=== PATIENT | female | born 1945 | race Caucasian/White ===

== ENCOUNTER → 2021-02-27 15:25 | Outpatient (CLI) | payer MEDICARE, OTHER, SELFPAY | PROVIDERS: Referring Provider Physician Assistant; Visit Provider Physician Assistant | DX: N34.3 Urethral syndrome, unspecified (principal) | CPT/HCPCS: 87077; 87086; 87186 ==

== ENCOUNTER 2021-03-06 10:21 | Emergency (ER) | payer MEDICARE, BC, SELFPAY ==
[2021-03-06] VITALS (8 sets, daily range): BP systolic 115–137; BP diastolic 56–87; PULSE 96–116; RESP 16–24; TEMP 36.2–37.2; O2SAT 95–99; BMI 22.6
--- NOTE | 2021-03-06 10:47 | DI.RAD.S_ITS ---
PROCEDURE: XR CHEST 1V INDICATIONS: suspected sepsis TECHNIQUE: One view of the chest was acquired. COMPARISON: None. FINDINGS: Surgical changes and devices: None. Lungs and pleura: Lungs are clear. No pleural effusions or pneumothorax. Calcified granuloma, left lung. Mediastinum: Mediastinal contours appear normal. Heart size is normal. Bones and chest wall: No suspicious bony lesions. Overlying soft tissues appear unremarkable. IMPRESSION: No evidence acute pulmonary process. Dictated by: Kyaw Grey M.D. on 03/06/2021 at 11:35 Approved by: Kyaw Grey M.D. on 03/06/2021 at 11:36
[2021-03-06] MEDS: SODIUM CHLORIDE 0.9% 1,000 ML 1000 ML IV (11:22)
[2021-03-06] MEDS: ONDANSETRON 4 MG/2 ML INJ IV (11:22)
[2021-03-06 11:25] LABS: Add Manual Diff / Slide Review NO; Basophils Absolute Auto 0 /uL (0-100); Basophils Percent Auto 0.4 % (0-2); Eosinophils Absolute Auto 0 /uL (0-450); Eosinophils Percent Auto 0.1 % (2-4); Hematocrit 42.1 % (36-46); Hemoglobin 14.2 g/dL (12.0-16.0); Lymphocytes Absolute Auto 400 /uL (1100-4500); Lymphocytes Percent Auto 4.2 % (25-40); Mean Corpuscular HGB Conc 33.7 % (30-36); Mean Corpuscular Hemoglobin 32.1 PG (26-34); Mean Corpuscular Volume 95.1 fL (80-100); Monocytes Absolute Auto 300 /uL (0-900); Monocytes Percent Auto 3.5 % (3-14); Neutrophils Absolute Auto 8800 /uL (1500-7000); Neutrophils Percent Auto 91.8 % (50-75); Platelet Count 193 X10^3/uL (150-400); Red Blood Cell Count 4.42 X10^6/uL (4.0-5.2); Red Cell Distribution Width 12.4 % (11.6-14.8); White Blood Cell Count 9.6 X10^3/uL (4.5-11.0)
[2021-03-06 11:34] LABS: Lactate (Lactic Acid) 1.4 mmol/L (0.7-2.1)
[2021-03-06 11:36] LABS: Alanine Aminotransferase 55 IU/L (<35); Albumin 4.5 g/dL (3.5-5.0); Albumin Globulin Ratio 1.6 (1.0-2.8); Alkaline Phosphatase 77 U/L (38-126); Aspartate Aminotransferase 49 IU/L (14-36); BUN Creatinine Ratio 18.7 (6-22); Bilirubin Total 0.5 mg/dL (0.2-1.3); Blood Urea Nitrogen 14 mg/dL (7-17); Calcium 8.9 mg/dL (8.4-10.2); Carbon Dioxide 24 mmol/L (22-32); Chloride 105 mmol/L (98-107); Estimated Glomerular Filt Rate > 60.0 mL/min (>60); Globulin 2.9 g/dL (1.7-4.1); Glucose 136 mg/dL (80-110); HEMOLYSIS 21 (0-50); Lipase 141 U/L (23-300); Potassium 3.9 mmol/L (3.4-5.1); Sodium 137 mmol/L (137-145); Total Protein 7.4 g/dL (6.3-8.2)
[2021-03-06 11:52] LABS: Procalcitonin 0.11 ng/mL (<0.5)
--- NOTE | 2021-03-06 11:58 | ED.ABDPAIN ---
HPI - Abdominal Pain General Chief Complaint: Urogenital-Female Stated Complaint: Lower Abd Pain, Moving to Back, Nausea Time Seen by Provider: 03/06/21 11:56 Source: patient Mode of arrival: Ambulatory Limitations: no limitations History of Present Illness HPI narrative: This is a 75-year-old female who comes emergency department with complaint of generally unwell, lower abdominal pain with some radiation to bilateral back. Patient states she was recently on Augmentin for a UTI which she is still taking. She has 2 additional days of a 7 day course and urine culture was obtained and was positive for Klebsiella. Patient states she has 6 UTIs since July. She is following with urologist and has become self cathing for retained urine in between urinating herself. Patient's past medical history includes glaucoma, asthma, hypothyroidism. She has had a total hysterectomy and appendectomy. 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 because she held her urine for so many years she has not had her voiding cystogram or cystoscopy yet. Patient was on linezolid 1 time before orally at home. She has an allergy to Macrobid and sevoflurane. She lives in [place] and is currently visiting the area and staying [place] in [place] with her . Related Data Previous Rx's Medication Instructions Recorded amoxicillin 875 mg-potassium 1 tab PO BID 7 Days #14 tab 03/01/21 clavulanate 125 mg tablet (Augmentin) catheter 14 Fr-16 ([facility] #30 ea 03/01/21 Intermittent Catheter) Allergies Allergy/AdvReac Type Severity Reaction Status Date / Time nitrofurantoin Allergy Unknown Verified 03/06/21 10:41 [From Macrobid] sevoflurane Allergy Unknown Verified 03/06/21 10:41 Review of Systems Review of Systems ROS Unobtainable: All systems reviewed & are unremarkable except as noted in HPI and below Patient History Social History Smoking Status: Never smoker Smoking Status: Never smoker alcohol intake frequency: 0-2 drinks per day Substance Use Type: does not use Exam Narrative Exam Narrative: GENERAL: Alert and oriented x three, female in mild distress. HEENT: Head normocephalic, atraumatic, EOMI, pupils reactive, face symmetric, moist mucous membranes NECK: Supple, full range of motion CARDIOVASCULAR: Regular rate and rhythm without murmurs, rubs or gallops. RESPIRATORY: Breath sounds equal bilaterally, no wheezes rales or rhonchi. ABDOMEN: Soft, mild lower abdominal tenderness.. Normoactive bowel sounds all 4 quadrants. No guarding or rebound, rigidity, no mass, nondistended. : No CVA tenderness EXTREMITIES: Normal range of motion, no clubbing or edema. Neurovascularly intact NEUROLOGICAL: Cranial nerves II through XII grossly intact. Moving all extremities SKIN: Warm, dry, no petechiae, no rashes or lesions. Initial Vital Signs Initial Vital Signs: Vital Signs Temperature 97.1 F L 03/06/21 10:35 Pulse Rate 105 H 03/06/21 10:35 Respiratory Rate 20 03/06/21 10:35 Blood Pressure 137/69 03/06/21 10:35 Pulse Oximetry 99 03/06/21 10:35 Course Orders Ordered: ED Orders 03/06/21 11:07 Complete Blood Count AUTO DIFF Stat Comprehensive Metabolic Panel Stat Lactate (Lactic Acid) Stat Lipase Stat Procalcitonin Stat 03/06/21 11:39 Blood Culture Stat 03/06/21 11:45 COVID19 -Nasal swab/Pre-Proc Stat 03/06/21 11:56 UA Complete [Urinalysis and Microscopic] Stat 03/06/21 12:35 CT abdomen pelvis w con Stat 03/06/21 15:37 Clostridium Difficile Tox PCR Stat Discontinued Medications Sodium Chloride (Normal Saline 0.9%) 1,000 mls @ 1,000 mls/hr IV BOLUS ONE Stop: 03/06/21 11:45 Last Infusion: 03/06/21 14:31 Dose: 0 mls/hr Documented by: Admin: 03/06/21 11:22 Dose: 1,000 mls/hr Documented by: JAZZ Ondansetron HCl (Ondansetron 4 Mg/2 Ml Inj) 4 mg IV NOW ONE Stop: 03/06/21 10:47 Last Admin: 03/06/21 11:22 Dose: 4 mg Documented by: JAZZ Vital Signs Vital signs: Vital Signs - 8 hr 03/06/21 12:00 03/06/21 12:36 03/06/21 12:37 Temperature Pulse Rate 100 H 116 H 116 H Respiratory Rate 24 23 Blood Pressure 121/84 115/87 Pulse Oximetry 95 03/06/21 12:45 Temperature 98.9 F Pulse Rate Respiratory Rate Blood Pressure Pulse Oximetry MDM - Abdominal Pain Lab Data Result diagrams: 03/06/21 11:07 03/06/21 11:07 Labs: Lab Results 03/06/21 03/06/21 03/06/21 Range/Units 11:07 11:07 11:07 WBC 9.6 (4.5-11.0) X10^3/uL RBC 4.42 (4.0-5.2) X10^6/uL Hgb 14.2 (12.0-16.0) g/dL Hct 42.1 (36-46) % MCV 95.1 (80-100) fL MCH 32.1 (26-34) PG MCHC 33.7 (30-36) % RDW 12.4 (11.6-14.8) % Plt Count 193 (150-400) X10^3/uL Neut % (Auto) 91.8 H (50-75) % Lymph % (Auto) 4.2 L (25-40) % [place] % (Auto) 3.5 (3-14) % Eos % (Auto) 0.1 L (2-4) % Baso % (Auto) 0.4 (0-2) % Neut # (Auto) 8800 H (8432-3804) /uL Lymph # (Auto) 400 L (4837-8822) /uL [place] # (Auto) 300 (0-900) /uL Eos # (Auto) 0 (0-450) /uL Baso # (Auto) 0 (0-100) /uL Sodium 137 (137-145) mmol/L Potassium 3.9 (3.4-5.1) mmol/L Chloride 105 (98-107) mmol/L Carbon Dioxide 24 (22-32) mmol/L BUN 14 (7-17) mg/dL Creatinine 0.75 (0.52-1.04) mg/dL Estimated GFR > 60.0 (>60) mL/min BUN/Creatinine Ratio 18.7 (6-22) Glucose 136 H (80-110) mg/dL Lactate 1.4 (0.7-2.1) mmol/L Calcium 8.9 (8.4-10.2) mg/dL Total Bilirubin 0.5 (0.2-1.3) mg/dL AST 49 H (14-36) IU/L ALT 55 H (<35) IU/L Alkaline Phosphatase 77 (38-126) U/L Total Protein 7.4 (6.3-8.2) g/dL Albumin 4.5 (3.5-5.0) g/dL Globulin 2.9 (1.7-4.1) g/dL Albumin/Globulin Ratio 1.6 (1.0-2.8) Lipase 141 (23-300) U/L Procalcitonin 0.11 (<0.5) ng/mL Urine Color Urine Appearance Urine pH (4.5-8.0) Ur Specific [place] (1.000-1.035) Urine Protein (Negative) Urine Glucose (UA) (Negative) g/dL Urine Ketones (NEGATIVE) Urine Occult Blood (Negative) Urine Nitrate (Negative) Urine Bilirubin (NEGATIVE) Urine Urobilinogen (0.2) E.U./dL Ur Leukocyte Esterase (NEGATIVE) Urine RBC (0-5/HPF) Urine WBC (0-5/HPF) Urine Bacteria (None) Ur Culture Indicated? SARS-CoV-2 (PCR) (Negative) 03/06/21 03/06/21 Range/Units 11:45 11:56 WBC (4.5-11.0) X10^3/uL RBC (4.0-5.2) X10^6/uL Hgb (12.0-16.0) g/dL Hct (36-46) % MCV (80-100) fL MCH (26-34) PG MCHC (30-36) % RDW (11.6-14.8) % Plt Count (150-400) X10^3/uL Neut % (Auto) (50-75) % Lymph % (Auto) (25-40) % [place] % (Auto) (3-14) % Eos % (Auto) (2-4) % Baso % (Auto) (0-2) % Neut # (Auto) (0905-4675) /uL Lymph # (Auto) (5273-3809) /uL [place] # (Auto) (0-900) /uL Eos # (Auto) (0-450) /uL Baso # (Auto) (0-100) /uL Sodium (137-145) mmol/L Potassium (3.4-5.1) mmol/L Chloride (98-107) mmol/L Carbon Dioxide (22-32) mmol/L BUN (7-17) mg/dL Creatinine (0.52-1.04) mg/dL Estimated GFR (>60) mL/min BUN/Creatinine Ratio (6-22) Glucose (80-110) mg/dL Lactate (0.7-2.1) mmol/L Calcium (8.4-10.2) mg/dL Total Bilirubin (0.2-1.3) mg/dL AST (14-36) IU/L ALT (<35) IU/L Alkaline Phosphatase (38-126) U/L Total Protein (6.3-8.2) g/dL Albumin (3.5-5.0) g/dL Globulin (1.7-4.1) g/dL Albumin/Globulin Ratio (1.0-2.8) Lipase (23-300) U/L Procalcitonin (<0.5) ng/mL Urine Color Yellow Urine Appearance Clear Urine pH 5.0 (4.5-8.0) Ur Specific [place] 1.020 (1.000-1.035) Urine Protein Negative (Negative) Urine Glucose (UA) Negative (Negative) g/dL Urine Ketones Trace H (NEGATIVE) Urine Occult Blood 1+ H (Negative) Urine Nitrate Negative (Negative) Urine Bilirubin Negative (NEGATIVE) Urine Urobilinogen 0.2 (0.2) E.U./dL Ur Leukocyte Esterase Negative (NEGATIVE) Urine RBC 1-5/hpf (0-5/HPF) Urine WBC None seen (0-5/HPF) Urine Bacteria None seen (None) Ur Culture Indicated? Cult not indicated SARS-CoV-2 (PCR) Negative (Negative) Imaging Data CT scan - abdomen/pelvis: Radiologist's Impression: Launch?[address] [address] [address] Scan Report Signed Patient: Sondra Link MR#: [id number] : 1945 Acct:[id number] Age/Sex: 75 / F Date of Service: 03/06/21 Loc: ED Accession Number: [id number] ?? Procedure: CT abdomen pelvis w con Ordering Provider: Anu Cool D.O. PROCEDURE:? CT ABDOMEN PELVIS W CON ? INDICATIONS:? lower abd pain, recent UTI, on abx, multi stools today ? TECHNIQUE:? After the administration of intravenous contrast, axial sections acquired from the lung bases to the pubic symphysis.? Coronal and sagittal reformats were performed.? For radiation dose reduction, the following was used:? automated exposure control, adjustment of mA and/or kV according to patient size.? ? COMPARISON:? None. ? FINDINGS:? Image quality:? Excellent.? ? Lung bases:? Unremarkable. Heart:? No significant findings. ? ABDOMEN: Liver:? Unremarkable.? ? Gallbladder:? Unremarkable.? ? Biliary ducts:? Unremarkable.? ? Pancreas:? Unremarkable.? ? Spleen:? Extensive calcified granulomata.? Normal size. Adrenal Glands:? Unremarkable.? ? Kidneys and Ureters:? Unremarkable.? ? ? Stomach and Bowel:? The wall of the entire colon is diffusely thickened with prominent enhancement noted predominantly in the sigmoid and rectum.? Findings are consistent with colitis.? Consider C difficile. Peritoneum:? No abnormal intraperitoneal fluid.? No free air.? ? Ventral Wall: ? No hernias.? Abdominal Nodes:? No retroperitoneal or mesenteric adenopathy by size criteria.? Vessels:? Aorta and inferior vena cava are normal in size.? ? PELVIS: Pelvic Organs:? Uterus is surgically absent.? Bladder:? Unremarkable.? ? Pelvic Nodes: No enlarged lymph nodes.? Miscellaneous: No hernias are seen. ? ? ? Bones:? Unremarkable.? IMPRESSION:? ? 1. Diffuse colitis.? In the setting of IV antibiotics comment consider C difficile colitis. ? ? ? Dictated by: Kyaw Grey M.D. on 03/06/2021 at 12:56 ? ? Approved by: Kyaw Grey M.D. on 03/06/2021 at 13:01?? ECG Data Attestation: I personally reviewed and interpreted this ECG as follows: Prior ECG tracings: not available for review Interpretation: Sinus rhythm cage no PVCs. Rate of 99 WI 148 QRS is 72 and QTC of 467. No acute ST changes appreciated. Nonspecific change. MDM Narrative Medical decision making narrative: This is a 75-year-old female who comes in with complaint of general abdominal discomfort and back pain. Patient has had at least 6 stools today she describes them as well formed the last 1 was a little bit looser but not liquidy. There has been no bright red blood or melanotic stool. She has been afebrile vitals here have been appropriate in the department. Her labs at 98% but no other major changes to CBC. She has a bump in her AST ALT with negative bilirubin, lipase and a negative procalcitonin. Patient's UA is negative here in the department it is a catheterized specimen and COVID is negative as well as patient lives out of state is visiting the area and has had 6 UTIs which typically do not cause her abdominal discomfort CT imaging was obtained and is positive for colitis. Patient notes that remotely she had C diff 20 years ago. She has been on multiple rounds of antibiotics and has had 5 days of Augmentin. Patient was not able to produce a stool sample here to evaluate for C diff. She was given a outpatient lab order but also instructed she can return here if there is any difficulties when she is able to give a stool sample if she does not have a local PCP. Discharge Plan Departure Patient Disposition: Home Clinical Impression: Colitis Instructions: DI for Colitis Activity Restrictions/Additional Instructions: Your imaging today does show colitis. As discussed it is important to have you checked for C diff since you had prior episodes in the past. A stool sample and hat should be going home with you. A outpatient order should also be present in your discharge paperwork. You can drop this off at the outpatient lab. Please return for fevers, worsening symptoms, black or bloody stools increasing abdominal, back or flank pain, persistent vomiting or other new or concerning symptoms. Prescriptions: No Action amoxicillin-pot clavulanate [Augmentin] 875-125 mg tablet 1 tab PO BID 7 Days Qty: 14 RF: 0 (DME) [facility] Intermit Catheter 14-16 Fr- misc See Rx Instructions .Route Qty: 30 RF: 0 Referrals: Miscellaneous,Doctor, MD [Primary Care Provider] -
--- NOTE | 2021-03-06 12:02 | PC.NURSE ---
Urinary straight cath performed by this RN to facilitate UA due to hx of UTI
[2021-03-06 12:06] LABS: Appearance Urine UA CLEAR; Bilirubin Urine UA NEGATIVE (NEGATIVE); Color Urine UA YELLOW; Glucose Urine UA NEGATIVE (Negative); Ketones Urine UA TRACE (NEGATIVE); Leukocyte Esterase Urine UA NEGATIVE (NEGATIVE); Nitrite Urine UA NEGATIVE (Negative); Occult Blood Urine UA 1+ (Negative); Protein Urine UA NEGATIVE (Negative); Urobilinogen Urine UA 0.2 E.U./dL (0.2)
[2021-03-06 12:13] LABS: Culture Indicated Urine Cult Not Indicated; RBC Urine 1-5/HPF (0-5/HPF)
[2021-03-06 12:26] LABS: COVID19 -Nasal RAPID Negative (Negative)
--- NOTE | 2021-03-06 12:35 | DI.CT.S_ITS ---
PROCEDURE: CT ABDOMEN PELVIS W CON INDICATIONS: lower abd pain, recent UTI, on abx, multi stools today TECHNIQUE: After the administration of intravenous contrast, axial sections acquired from the lung bases to the pubic symphysis. Coronal and sagittal reformats were performed. For radiation dose reduction, the following was used: automated exposure control, adjustment of mA and/or kV according to patient size. COMPARISON: None. FINDINGS: Image quality: Excellent. Lung bases: Unremarkable. Heart: No significant findings. ABDOMEN: Liver: Unremarkable. Gallbladder: Unremarkable. Biliary ducts: Unremarkable. Pancreas: Unremarkable. Spleen: Extensive calcified granulomata. Normal size. Adrenal Glands: Unremarkable. Kidneys and Ureters: Unremarkable. Stomach and Bowel: The wall of the entire colon is diffusely thickened with prominent enhancement noted predominantly in the sigmoid and rectum. Findings are consistent with colitis. Consider C difficile. Peritoneum: No abnormal intraperitoneal fluid. No free air. Ventral Wall: No hernias. Abdominal Nodes: No retroperitoneal or mesenteric adenopathy by size criteria. Vessels: Aorta and inferior vena cava are normal in size. PELVIS: Pelvic Organs: Uterus is surgically absent. Bladder: Unremarkable. Pelvic Nodes: No enlarged lymph nodes. Miscellaneous: No hernias are seen. Bones: Unremarkable. IMPRESSION: 1. Diffuse colitis. In the setting of IV antibiotics comment consider C difficile colitis. Dictated by: Kyaw Grey M.D. on 03/06/2021 at 12:56 Approved by: Kyaw Grey M.D. on 03/06/2021 at 13:01
[2021-03-06 15:24] LABS: Bacteria Urine None Seen; WBC Urine None Seen (0-5/HPF)
[2021-03-06 22:50] LABS: Clostridium Difficile Tox PCR Positive for C. diff (Negative)
[2021-03-08 16:17] LABS: C difficie Toxins A and B, EIA Positive (Negative)
== END 2021-03-06 14:31 | disposition home or self-care (01) ==
PROVIDERS: Emergency Provider Emergency Medicine
DX: A04.72 Enterocolitis due to Clostridium difficile, not specified as recurrent (principal); M54.5 Low back pain; Z20.822 Contact with and (suspected) exposure to COVID-19; R10.30 Lower abdominal pain, unspecified
CPT/HCPCS: 36415; 71045; 74177; 80053; 81001; 83605; 83690; 84145; 85025; 87040; 87324; 87493; 87635; 93005; 93010; 96361; 96374; 99284; C9803; J2405

== ENCOUNTER 2021-03-10 09:58 | Emergency (ER) | payer MEDICARE, BC, SELFPAY ==
[2021-03-10 10:06] VITALS: O2SAT 96
[2021-03-10 10:07] VITALS: BP 131/75; PULSE 90; O2SAT 97
[2021-03-10 10:20] VITALS: BP 131/75; PULSE 89; RESP 16; TEMP 36.7; O2SAT 97
--- NOTE | 2021-03-10 10:25 | PC.NURSE ---
Patient with long hx of UTI's both before self cath and since self cath. Reports urethral spasm since Friday and pain with cathing.
[2021-03-10 10:30] VITALS: BP 100/58; PULSE 81; O2SAT 94
[2021-03-10 10:36] LABS: Bilirubin Urine UA NEGATIVE (NEGATIVE); Color Urine UA YELLOW; Glucose Urine UA NEGATIVE (Negative); Ketones Urine UA 1+ (NEGATIVE); Leukocyte Esterase Urine UA 2+ (NEGATIVE); Nitrite Urine UA POSITIVE (Negative); Occult Blood Urine UA 1+ (Negative); Protein Urine UA TRACE (Negative); Urobilinogen Urine UA 0.2 E.U./dL (0.2)
[2021-03-10 10:37] LABS: Appearance Urine UA Slightly Cloudy; pH Urine UA 6.5 (4.5-8.0)
[2021-03-10 10:55] LABS: Bacteria Urine Many (>30); RBC Urine 0-1/HPF (0-5/HPF); Squamous Epithelial Cell Urine 0-1 /HPF (0-5/HPF); WBC Urine 5-10/HPF (0-5/HPF)
[2021-03-10 11:00] VITALS: BP 119/57; PULSE 78; O2SAT 94
--- NOTE | 2021-03-10 11:01 | ED.GENADULT ---
HPI - General Adult General Chief complaint: Urogenital-Female Stated complaint: POSSIBLE UTI Time Seen by Provider: 03/10/21 10:00 Source: patient Mode of arrival: Ambulatory History of Present Illness HPI narrative: Patient is a 75-year-old female. Has had an issue with urinary retention in the past and she does self catheterize. She is from [place]. She is visiting the area. She has a appointment with Urology coming up when she returns home. She had a history of Clostridium difficile 20 years ago. She has been on multiple antibiotics recently secondary to frequent urinary tract infections. Her most recent urinary tract infection was a couple days ago. She was seen in the walk-in clinic. Had a nitrite positive urine which grew out Klebsiella. She was started on Augmentin. She was seen here in the emergency department short time afterwards. Had been on Augmentin for a couple days. Had a CT scan performed. Had stool studies performed which showed Clostridium difficile. The Augmentin was stopped. She was started on oral vancomycin. She has been taking that as directed. She feels like her diarrhea has improved. She has no fevers. Her abdominal discomfort is improved however over the past 24 hours she has started to have symptoms consistent with her urinary tract infections. She has Bactrim at home and has taken a couple doses of this however symptoms have not improved. Had some nausea and vomiting but that has resolved. Related Data Previous Rx's Medication Instructions Recorded catheter 14 Fr-16 ([facility] #30 ea 03/01/21 Intermittent Catheter) Allergies Allergy/AdvReac Type Severity Reaction Status Date / Time nitrofurantoin Allergy Unknown Verified 03/10/21 10:19 [From Macrobid] sevoflurane Allergy Unknown Verified 03/10/21 10:19 Review of Systems Constitutional Constitutional: Denies fever(s) Cardiovascular Cardiovascular: Reports system reviewed and no additional complaints, except as documented Respiratory Respiratory: Reports system reviewed and no additional complaints, except as documented Gastrointestinal Gastrointestinal: Reports as per HPI and Reports system reviewed and no additional complaints, except as documented Genitourinary Genitourinary: Reports as per HPI Musculoskeletal Musculoskeletal: Reports system reviewed and no additional complaints, except as documented and Denies back pain Integumentary/Breasts Skin/Breast: Reports system reviewed and no additional complaints, except as documented Neurologic Neurologic: Reports system reviewed and no additional complaints, except as documented Endocrine Endocrine: Reports system reviewed and no additional complaints, except as documented Hematologic/Lymphatic On Anticoagulants: No Patient History Medical History Clostridium difficile diarrhea Urinary retention Social History Smoking Status: Never smoker Smoking Status: Never smoker alcohol intake frequency: 0-2 drinks per day Substance Use Type: does not use Exam Initial Vital Signs Initial Vital Signs: Vital Signs Temperature 98.1 F 03/10/21 10:20 Pulse Rate 89 03/10/21 10:20 Respiratory Rate 16 03/10/21 10:20 Blood Pressure 131/75 03/10/21 10:20 Pulse Oximetry 97 03/10/21 10:20 Const General: cooperative and healthy appearing HENMT Head: normal to inspection and normocephalic Resp Effort & Inspection: normal respiratory effort Cardio Rate: regular rate GI Inspection: normal to inspection Palpation: soft and tender (Mildly tender) Back/Spine/Pelvis Back: No CVA tenderness Skin General: no rashes or lesions noted Neuro General: patient alert, patient awake and moves all extremities Extrem General: normal to inspection and capillary refill normal Psych Appearance: grossly normal and well kempt Course Orders Ordered: ED Orders 03/10/21 10:05 Urinalysis and Microscopic Stat Urine Culture Stat Vital Signs Vital signs: Vital Signs - 8 hr 03/10/21 10:20 Temperature 98.1 F Pulse Rate 89 Respiratory Rate 16 Blood Pressure 131/75 Pulse Oximetry 97 Medical Decision Making Medical Records Medical records reviewed: Yes I reviewed the patient's medical records. Lab Data Labs: Lab Results 03/10/21 Range/Units 10:05 Urine Color Yellow Urine Appearance Slightly cloudy Urine pH 6.5 (4.5-8.0) Ur Specific [place] 1.010 (1.000-1.035) Urine Protein Trace H (Negative) Urine Glucose (UA) Negative (Negative) g/dL Urine Ketones 1+ H (NEGATIVE) Urine Occult Blood 1+ H (Negative) Urine Nitrate Positive H (Negative) Urine Bilirubin Negative (NEGATIVE) Urine Urobilinogen 0.2 (0.2) E.U./dL Ur Leukocyte Esterase 2+ H (NEGATIVE) Urine RBC 0-1/hpf (0-5/HPF) Urine WBC 5-10/hpf H (0-5/HPF) Ur Squamous Epith Cells 0-1 /hpf (0-5/HPF) Urine Bacteria Many (>30) H (None) Ur Culture Indicated? Culture not indicate MDM Narrative Medical decision making narrative: Patient does have a benign exam. She is afebrile. Not tachycardic. Her symptoms consistent with her C diff have been improving. Vancomycin does seem to be working. Her urinalysis today is nitrite positive. Review of her prior urine cultures does show Klebsiella. Was resistant to Bactrim so the medications she had been on the past couple days is not improving. Is also resistant to Macrobid but she is allergic to this. Has been on Augmentin however the cephalosporins seem to be better for this although we did discuss the potential worsening C diff. She has Cipro at home. The plan will be is for her to continue taking the vancomycin. She will start taking the Cipro for the next couple days. She also has peridium at home. When she returns home she will contact her primary doctor and also her urologist for follow-up. She was given return precautions and follow-up instructions. She expressed understanding and agreement. Discharge Plan Departure Patient Disposition: Home Clinical Impression: Urinary tract infection Instructions: DI for Urinary Tract Infection (UTI) Activity Restrictions/Additional Instructions: There was a urine culture pending at the time of your discharge. This does take a couple days to result and we will contact you for any positive results. I do recommend that you continue to take the vancomycin as previously directed. You can take the peridium for any urinary symptoms. Also recommend that you take your Cipro that you artery have a prescription for. The dose of this will be 250 mg by mouth 2 times a day for 3 days. If your symptoms worsen during your trip back home please follow-up in the nearest emergency department. Prescriptions: No Action (DME) [facility] Intermit Catheter 14-16 Fr- misc See Rx Instructions .Route Qty: 30 RF: 0 Referrals: Miscellaneous,Doctor, [Primary Care Provider] -
[2021-03-10 11:18] VITALS: BP 101/51; PULSE 72; O2SAT 95
== END 2021-03-10 11:19 | disposition home or self-care (01) ==
PROVIDERS: Emergency Provider Emergency Medicine
DX: N39.0 Urinary tract infection, site not specified (principal); A04.72 Enterocolitis due to Clostridium difficile, not specified as recurrent
CPT/HCPCS: 81001; 87077; 87086; 87186; 99281; 99282